=== PATIENT | male | born 1990 | race Caucasian/White ===

== ENCOUNTER 2023-03-21 16:29 | Emergency (ER) | payer SELFPAY ==
[2023-03-21] MEDS ORDERED: Dicyclomine 20 MG/2 ML VIAL ONE (18:08)
[2023-03-21] MEDS ORDERED: Ondansetron PF 4 MG/2 ML Vial ONE (18:08)
[2023-03-21] MEDS ORDERED: Ketorolac Tromethamine 30 MG/ML VIAL ONE (18:08)
== END 2023-03-21 19:00 | disposition home or self-care (01) ==
LOC: ERS 16:29
DX: K52.9 Noninfective gastroenteritis and colitis, unspecified (principal)
CPT/HCPCS: 96372; 96374; 96375; J1885; J2405